=== PATIENT | male | born 1980 | race Caucasian/White ===

== ENCOUNTER 2018-01-07 08:00 | Emergency (ER) | payer OTHER ==
[2018-01-07 08:15] VITALS: BP 138/91
--- NOTE | 2018-01-07 09:34 | ED Physician Documentation ---
PD HPI OPHTHO - Stated complaint Stated Complaint: EYE IRRITATION - Chief complaint Chief Complaint: Heent - History obtained from History obtained from: Patient - History of Present Illness Timing - onset: How many hours ago (1) Timing - details: Still present Associated symptoms: FB sensation Contributing factors: Wears contacts Similar symptoms before: Has not had sx before - Additional information Additional information: The patient is a 37-year-old male who wears contact lenses, and presents with foreign body sensation in his right eye. The sensation started this morning after putting in his contact lens. He subsequently removed the contact lens and flushed his eye, without relief. He denies any change in his visual acuity. The contact lens in his left eye was not associated with similar symptoms. He denies history of similar symptoms in the past. Review of Systems Eyes: reports: Irritation. denies: Decreased vision, Photophobia, Discharge Nose: denies: Congestion GI: denies: Nausea Neurologic: denies: Headache PD PAST MEDICAL HISTORY - Past Medical History Cardiovascular: None Respiratory: None Neuro: None Endocrine/Autoimmune: None - Present Medications Home Medications: Ambulatory Orders Medication Instructions Recorded Confirmed No Known Home Medications [No 01/07/18 01/07/18 Known Home Medications] - Allergies Allergies/Adverse Reactions: Allergies Allergy/AdvReac Type Severity Reaction Status Date / Time No Known Drug Allergies Allergy Verified 01/07/18 08:14 - Immunizations Immunizations are current?: Yes PD ED PE NORMAL - Vitals Vital signs reviewed: Yes (Mild hypertension initially.) - General General: Alert and oriented X 3, Well developed/nourished - HEENT HEENT: Atraumatic, PERRL, EOMI, Other (Fluorescein stain and slit-lamp exam of the right eye reveals no corneal abrasion or foreign body. He upper lid was everted and no foreign body was detected. Funduscopic exam reveals sharp disc margins, without papilledema.) - Neck Neck: No adenopathy - Respiratory Respiratory: No respiratory distress PD ED PE EXPANDED - Eyes Eyes: Visual acuity - see nn (20/20 in the left eye with contact lens, 20/40 in the right eye without contact lens.), PERRL, Normal accommodation, EOMI, Right eye, No eyelid FB (everted), Nl conjunctiva/sclera, Anterior chambers clear, Normal fundi. No: Conj/sclera FB, Corneal FB, Corneal abrasion, Fluorescein uptake Results - Vitals Vitals: Oxygen O2 Source Room air PD MEDICAL DECISION MAKING - ED course Complexity details: considered differential, d/w patient ED course: The patient's presentation is significant for irritation of the right eye, with foreign body sensation. Fluorescein stain and slit-lamp exam including eversion of the upper eyelid, reveals no evidence of foreign body or corneal abrasion. The foreign body sensation resolved completely with installation of Ophthaine. It is possible that an eyelash inverted, and created a foreign body sensation. However that was not seen on examination. I discussed with the patient potentially worrisome signs or symptoms that should prompt reevaluation in the emergency department. Departure - Departure Disposition: 01 Home, Self Care Clinical Impression: Irritation of right eye Condition: Stable Instructions: ED Conjunctivitis Nonspecific Follow-Up: TYRA ALLAN DO [Primary Care Provider] - Comments: You can flush your eye with artificial tears as needed. Avoid wearing your contact lens until the irritation of your eye has resolved. Follow up with your primary physician or return to the emergency department if increasing irritation of your eye, or if not improving within 24-48 hours. Discharge Date/Time: 01/07/18 09:57
== END 2018-01-07 09:57 | disposition home or self-care (01) ==
LOC: ED 08:00
DX: H57.8 Other specified disorders of eye and adnexa (principal)
CPT/HCPCS: 99282; 99283